=== PATIENT | male | born 1990 | race Caucasian/White ===

== ENCOUNTER 2017-06-12 17:23 | Emergency (ER) | payer OTHER, MEDICAID ==
[2017-06-12] MEDS ORDERED: Ketorolac 60 MG/2 ML SDV ONE (18:21)
--- NOTE | 2017-06-12 18:58 | EDM.PDOC ---
ED HPI GENERAL MEDICAL PROBLEM - General Chief Complaint: Upper Extremity Injury/Pain Stated Complaint: FALL; INJURY TO HAND & ARM Time Seen by Provider: 06/12/17 17:30 Source of Information: Reports: Patient History Limitations: Reports: No Limitations - History of Present Illness INITIAL COMMENTS - FREE TEXT/NARRATIVE: According to patient he was fixing a lamp on the ceiling of the room and accidentally slipped on the ladder, fell from about 6 feet height and landed on the floor with out stretched right hand and felt a sharp pain in his right elbow , since then he cannot move his elbow and is very painful. No brusing or open wound. No other injuries. Onset: Today Onset Date: 06/12/17 Onset Time: 17:00 Location: Reports: Upper Extremity, Right Quality: Reports: Ache Severity: Moderate Improves with: Reports: None Worsens with: Reports: None Associated Symptoms: Denies: Confusion, Fever/Chills, Loss of Appetite, Nausea/ Vomiting, Rash, Shortness of Breath, Syncope left arm Pain Score (Numeric/FACES): 10 - Related Data Allergies Allergy/AdvReac Type Severity Reaction Status Date / Time No Known Allergies Allergy Verified 07/13/16 17:28 Home Meds: Home Meds FLUoxetine [PROzac] 80 mg PO DAILY 06/12/17 [History] LORazepam [Ativan] 0.5 mg PO ASDIRECTED PRN 06/12/17 [History] QUEtiapine [SEROquel] 100 mg PO DAILY 06/12/17 [History] Review of Systems - Review of Systems Review Of Systems: See Below Constitutional: Denies: Chills, Fever Eyes: Denies: Inflammation Ears: Denies: Dizziness, Tinnitus, Clear Discharge, Purulent Discharge Nose: Denies: Clots, Congestion Mouth/Throat: Denies: Bleeding Respiratory: Denies: Cough, Sputum Cardiovascular: Denies: Chest Pain, Syncope GI/Abdominal: Denies: Nausea, Vomiting Musculoskeletal: Reports: Joint Pain, Joint Swelling Neurological: Denies: No Symptoms ED EXAM, GENERAL - Physical Exam Exam: See Below Exam Limited By: No Limitations General Appearance: Alert, WD/WN, Mild Distress Eye Exam: Bilateral Eye: EOMI, PERRL Ears: Normal External Exam, Normal Canal, Hearing Grossly Normal, Normal TMs Ear Exam: Bilateral Ear: Auricle Normal, Canal Normal, TM normal Nose: Normal Inspection, Normal Mucosa, No Blood Throat/Mouth: Normal Inspection, Normal Lips, Normal Teeth, Normal Gums, Normal Oropharynx, Normal Voice, No Airway Compromise Head: Atraumatic, Normocephalic Neck: Normal Inspection, Supple, Non-Tender, Full Range of Motion Respiratory/Chest: No Respiratory Distress, Lungs Clear, Normal Breath Sounds, No Accessory Muscle Use, Chest Non-Tender Cardiovascular: Normal Peripheral Pulses, Regular Rate, Rhythm, No Edema, No Gallop, No JVD, No Murmur, No Rub Extremities: Other (right elnbow: ther is mild swelling around the elbow joint. no brusing seen. Upper extremity in mid flexed position Very minimal flexion and extension, absent pronation and supination.Noraml exam of the right wrist and normal neurovascular exam of the rigth upper extremity.) Course - Vital Signs Text/Narrative:: Pt's clinical exam and his elbow X-ray are consistent with radial head fracture , minimally displaced. I have placed patient in long arm splint. Post splint neurovawscular exam normal. I did call Dr. Smith the Orthopedist dehydration plant operator at [facility]. His agrees with long arm splint. He wants patient to followup with Dr. Ospina the upper extremity specialist at [facility]. Information and phone number given to patient, advised call the orthopedic office on Thursday and set up appointment. Further care per Dr. Ospina. Last Recorded V/S: Last Vital Signs Temp 98.2 F 06/12/17 17:52 Pulse 78 06/12/17 17:52 Resp 20 06/12/17 17:52 BP 154/74 H 06/12/17 17:52 Pulse Ox 98 06/12/17 17:52 - Orders/Labs/Meds Orders: Active Orders 24 hr Category Date Time Status Elbow 2V Rt [CR] Stat Exams 06/12/17 18:09 Taken Forearm 2V Rt [CR] Stat Exams 06/12/17 18:02 Taken Meds: Medications Discontinued Medications Generic Name Dose Route Start Last Admin Trade Name Freq PRN Reason Stop Dose Admin Ketorolac Tromethamine Confirm 06/12/17 18:21 06/12/17 18:43 Toradol Administered 06/12/17 18:22 60 mg Dose Administration 60 mg .ROUTE .STK-MED ONE Departure - Departure Time of Disposition: 19:00 Disposition: Home, Self-Care 01 Condition: Good Clinical Impression: Right radial head fracture - Discharge Information Instructions: Ibuprofen tablets and capsules, Radial Head Fracture, Easy-to- Read Referrals: PCP,None [Primary Care Provider] - Forms: ED Department Discharge Additional Instructions: USe motrin (ibuprfen) as needed for the pain and swelling. Call [place] on Thursday morning at 0800 ask for the ortho clinic...Dr. Ospina [phone]. - Problem List & Annotations (1) Right radial head fracture SNOMED Code(s): 635914261 Code(s): S52.121A - DISP FX OF HEAD OF RIGHT RADIUS, INIT FOR CLOS FX Status: Acute - Problem List Review Problem List Initiated/Reviewed/Updated: Yes - My Orders Last 24 Hours: My Active Orders 06/12/17 18:02 Forearm 2V Rt [CR] Stat 06/12/17 18:09 Elbow 2V Rt [CR] Stat - Assessment/Plan Last 24 Hours: My Active Orders 06/12/17 18:02 Forearm 2V Rt [CR] Stat 06/12/17 18:09 Elbow 2V Rt [CR] Stat Assessment:: Closed right radial head fracture Plan: Pt's clinical exam and his elbow X-ray are consistent with radial head fracture , minimally displaced. I have placed patient in long arm splint. Post splint neurovascular exam normal. He did receive toradol 60mg Im for pain. Advised motrin 600mg 3 times daily for pain. Elevation of extremity. Right arm placed in arm sling. I did call Dr. Smith the Orthopedist dehydration plant operator at [facility]. His agrees with long arm splint. He wants patient to followup with Dr. Ospina the upper extremity specialist at [facility]. Information and phone number given to patient, advised call the orthopedic office on Thursday and set up appointment. Further care per Dr. Ospina.Pt agrees with the plan.
--- NOTE | 2017-06-15 00:39 | CR ---
DATE OF SERVICE: 06/12/2017 CLINICAL DATA: Wheelchair. RIGHT FOREARM: There is a mildly displaced fracture through the radial head. There are positive anterior and posterior fat pad signs at the elbow consistent with a joint effusion or hemarthrosis. There is also a lucency through the distal radius suspicious for a fracture. No other significant findings. [id number] [facility]
--- NOTE | 2017-06-15 00:41 | CR ---
DATE OF SERVICE: 06/12/2017 CLINICAL DATA: Fall. RIGHT ELBOW: There is a comminuted mildly displaced intra-articular fracture through the head of the radius with a moderate size joint effusion/hemarthrosis. No other acute abnormalities. [id number] MTDD
== END 2017-06-12 18:45 | disposition home or self-care (01) ==
LOC: LB.ED 17:23
DX: S52.121A Displaced fracture of head of right radius, initial encounter for closed fracture (principal); W11.XXXA Fall on and from ladder, initial encounter
CPT/HCPCS: 29105; 73070; 73090; 99283; J1885

== ENCOUNTER 2017-09-26 11:05 | Emergency (ER) | payer MEDICAID ==
[2017-09-26] MEDS ORDERED: Levofloxacin 500 MG Tab ONE ×2 (11:25→13:13)
[2017-09-26] MEDS ORDERED: cefTRIAXone 1 GM Vial ONE (13:12)
[2017-09-26] MEDS ORDERED: Ketorolac 30 MG/ML SDV ONE (13:13)
== END 2017-09-26 13:38 | disposition home or self-care (01) ==
LOC: LB.ED 11:05
DX: N45.1 Epididymitis (principal)
CPT/HCPCS: 36415; 81001; 85025; 86140; 87086; 87491; 87591; 99283; A9270-GY; J0696; J1885

== ENCOUNTER 2017-10-16 01:05 | Emergency (ER) | payer MEDICAID ==
[2017-10-16] MEDS: FLUoxetine 20 MG Cap ONE ×2 (02:36)
[2017-10-16] MEDS: FLUoxetine 20 MG Cap PO SCH (02:37)
[2017-10-16 03:11] VITALS: BP 143/94
--- NOTE | 2017-10-16 03:28 | ER ---
DATE OF SERVICE: 10/16/2017 HISTORY OF PRESENT ILLNESS: A 27-year-old male who comes in with law enforcement for suicidal ideation. The patient is currently living with his mother. He tells me that he is not interested in committing suicide, but his mother called law enforcement because the patient was making threats about suicide and actually held a gun to his head a couple of nights ago. The patient states that he usually will just take a gun and go out walking and will target shoot basically. He is adamant about not being serious about suicide. The patient tells me that he has had a lot going on lately. He has an arm injury from last winter that required surgery involving the right arm and this is still bothering him. He has not been able to work since then. He also admits to having history of OCD and depression. The patient is out of his medications. He has been on Prozac 80 mg a day and Seroquel 100 mg a day. He states that he has tried to get his medications and there was some problem with his current insurance, and he was given 10 tablets at one time and now he has been out for a few days and he knows he is going into withdrawal mode. The patient states that he also smokes weed to help him relax and with pain control. He denies any alcohol use. OBJECTIVE: GENERAL APPEARANCE: The patient is awake. He is somewhat belligerent initially. He is covered with mud and dirt. He states this happened when the legal arbitrator arrested him. He tells me that he was also caged in the process. VITAL SIGNS: Reviewed as listed. HEENT: Eyes, pupils are equal and reactive to light. Ears, TMs are normal. The patient is refusing an oral exam. LUNGS: Clear. CARDIAC: Heart sounds distinct without murmurs. SKIN: Warm and dry. LABORATORY DATA: Labs include a CBC which is normal. CMP is also unremarkable. Urine tox screen is positive for benzodiazepines and marijuana. ETOH is negative. At this point, we also consulted with [facility] who did an evaluation on the patient. I talked with Gill after the evaluation was done and he does not feel the patient is a risk for suicide tonight, and he deems the patient safe to return home especially with family members at home which would be a support system for the patient. DIAGNOSIS: Suicidal ideation with no intent of committing suicide. TREATMENT PLAN: The patient will be discharged to the care of law enforcement annalise. We did give the patient 1 dose of Prozac 80 mg and Seroquel 100 mg before leaving our facility. The patient calmed down nicely over his stay here and is very pleasant at the end of our visit. ELROY/JOHNNY /[id number] MTDD
== END 2017-10-16 03:00 ==
LOC: EEVIPCON 01:05 → LB.ED 01:05
DX: R45.851 Suicidal ideations (principal)
CPT/HCPCS: 36415; 80053; 80307; 85025; 99284; A9270; G0480

== ENCOUNTER 2018-12-26 13:16 | Emergency (ER) | payer MEDICAID | END 2018-12-26 13:29 | disposition home or self-care (01) | LOC: LB.ED 13:16 | DX: Z53.21 Procedure and treatment not carried out due to patient leaving prior to being seen by health care provider (principal) ==

== ENCOUNTER 2018-12-26 15:53 | Emergency (ER) | payer MEDICAID ==
--- NOTE | 2018-12-26 16:04 | EDM.PDOC ---
ED HPI GENERAL MEDICAL PROBLEM - General Chief Complaint: General Stated Complaint: injured Right finger Time Seen by Provider: 12/26/18 16:00 Source of Information: Reports: Patient History Limitations: Reports: No Limitations - History of Present Illness INITIAL COMMENTS - FREE TEXT/NARRATIVE: According to patient, he is left handed, he was holding on to some wood and slamming the nail into it with a sledge hammer in his left hand. He accidentally hit his right hand over the base of the index finger. [place] severe pain. Since then he has not been able to bend his index finger and also has developed swelling over the base of the index finger. No open wound. No other injuries. Onset: Today Onset Date: 12/26/18 Onset Time: 13:00 Location: Reports: Upper Extremity, Right Quality: Reports: Ache Severity: Moderate Improves with: Reports: None Worsens with: Reports: None Associated Symptoms: Denies: Confusion, Chest Pain, Cough, Diaphoresis, Fever/ Chills, Headaches, Nausea/Vomiting, Rash, Seizure, Shortness of Breath, Syncope , Weakness - Related Data Allergies Allergy/AdvReac Type Severity Reaction Status Date / Time No Known Allergies Allergy Verified 12/26/18 13:25 Home Meds: Home Meds FLUoxetine [PROzac] 80 mg PO QPM 06/12/17 [History] QUEtiapine [SEROquel] 100 mg PO QPM 06/12/17 [History] Past Medical History Respiratory History: Reports: Other (See Below) Other Respiratory History: hx tuberculosis several years ago and was treated. X rays done last spring and were negative at that time Genitourinary History: Reports: Other (See Below) Other Genitourinary History: 2017 hydrocele in testicle not sure what side. Lump in left testicle now. Hx recent STD Musculoskeletal History: Reports: Neck Pain, Chronic, Other (See Below) Other Musculoskeletal History: buldged disk in neck C1 and C2 but states more are bad now Psychiatric History: Reports: Anxiety, Depression, OCD, Panic Attack, PTSD - Infectious Disease History Infectious Disease History: Reports: TB - Past Surgical History Male Surgical History: Reports: None Musculoskeletal Surgical History: Reports: Other (See Below) Other Musculoskeletal Surgeries/Procedures:: fractured rt arm June 12 2017 States has hurt last couple of weeks or longer. No heavy lifting Social & Family History - Family History Family Medical History: Noncontributory - Caffeine Use Caffeine Use: Reports: Coffee, Soda ED ROS GENERAL - Review of Systems Review Of Systems: See Below Constitutional: Denies: Fever, Chills HEENT: Denies: Ear Pain, Rhinitis, Throat Pain Respiratory: Denies: Shortness of Breath, Pleuritic Chest Pain, Cough, Sputum Cardiovascular: Denies: Chest Pain, Lightheadedness GI/Abdominal: Denies: Abdominal Pain, Nausea, Vomiting Musculoskeletal: Reports: Hand Pain. Denies: Joint Pain, Joint Swelling, Muscle Pain, Muscle Stiffness Skin: Denies: Bruising, Pruritis, Rash, Wound ED EXAM, GENERAL - Physical Exam Exam: See Below Exam Limited By: No Limitations General Appearance: Alert, WD/WN, No Apparent Distress Eye Exam: Bilateral Eye: EOMI, PERRL Ears: Normal External Exam, Normal Canal, Hearing Grossly Normal, Normal TMs Ear Exam: Bilateral Ear: Auricle Normal, Canal Normal, TM normal Nose: Normal Inspection, Normal Mucosa, No Blood Throat/Mouth: Normal Inspection, Normal Lips, Normal Teeth, Normal Gums, Normal Oropharynx, Normal Voice, No Airway Compromise Head: Atraumatic, Normocephalic Neck: Normal Inspection, Supple, Non-Tender, Full Range of Motion Respiratory/Chest: No Respiratory Distress, Lungs Clear, Normal Breath Sounds, No Accessory Muscle Use, Chest Non-Tender Cardiovascular: Normal Peripheral Pulses, Regular Rate, Rhythm, No Edema, No Gallop, No JVD, No Murmur, No Rub Back Exam: Normal Inspection, Full Range of Motion, NT Extremities: Other (Right hand: ther eiis swelling over the 2nd MCP joint. ONn ROM, he has minimal painful flexion of the finger at MCP joint. Tender over MCP joint, no crepitus felt.) Neurological: Alert, Oriented, CN II-XII Intact, Normal Cognition, Normal Gait, Normal Reflexes, No Motor/Sensory Deficits Course - Vital Signs Text/Narrative:: Pt his his right hand 2nd MCP joint with sledge hammer accidentally today . He does have swelling of the joint. Painful flexion at the joint. X-ray of the right hand does not show any fracture or dislocation. Pt reassured. Advised intermittent cold compresses. Start ROM activities of the finger and hand. Motrin 800mg 3 times daily. Pain should gradually improve. Last Recorded V/S: Last Vital Signs Temp 99.2 F 12/26/18 16:00 Pulse 79 12/26/18 16:00 Resp 18 12/26/18 16:00 BP 129/82 12/26/18 16:00 Pulse Ox 99 12/26/18 16:00 - Orders/Labs/Meds Orders: Active Orders 24 hr Category Date Time Status Hand Comp Min 3V Rt [CR] Stat Exams 12/26/18 15:59 Ordered Departure - Departure Time of Disposition: 16:20 Disposition: Home, Self-Care 01 Condition: Fair Clinical Impression: Soft tissue injury of hand - Discharge Information *PRESCRIPTION DRUG MONITORING PROGRAM REVIEWED*: Not Applicable *COPY OF PRESCRIPTION DRUG MONITORING REPORT IN PATIENT DANIEL: Not Applicable Forms: ED Department Discharge Additional Instructions: Pt his his right hand 2nd MCP joint with sledge hammer accidentally today . He does have swelling of the joint. Painful flexion at the joint. X-ray of the right hand does not show any fracture or dislocation. Pt reassured. Advised intermittent cold compresses. Start ROM activities of the finger and hand. Motrin 800mg 3 times daily. Pain should gradually improve. - Problem List & Annotations (1) Soft tissue injury of hand SNOMED Code(s): 669176015, 142790970 Code(s): S69.90XA - UNSP INJURY OF UNSP WRIST, HAND AND FINGER(S), INIT ENCNTR Status: Acute Current Visit: Yes - Problem List Review Problem List Initiated/Reviewed/Updated: Yes - My Orders Last 24 Hours: My Active Orders 12/26/18 15:59 Hand Comp Min 3V Rt [CR] Stat - Assessment/Plan Last 24 Hours: My Active Orders 12/26/18 15:59 Hand Comp Min 3V Rt [CR] Stat Assessment:: Soft tissue injury of right hand Plan: Pt his his right hand 2nd MCP joint with sledge hammer accidentally today . He does have swelling of the joint. Painful flexion at the joint. X-ray of the right hand does not show any fracture or dislocation. Pt reassured. Advised intermittent cold compresses. Start ROM activities of the finger and hand. Motrin 800mg 3 times daily. Pain should gradually improve.
--- NOTE | 2018-12-27 14:17 | CONS ---
DATE OF CONSULTATION: 12/26/2018 IMPRESSION: No acute fracture or dislocation. No lytic or blastic bone lesions. MILAD/MODKhadra /[id number]
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
== END 2018-12-26 16:18 | disposition home or self-care (01) ==
LOC: LB.ED 15:53
DX: S69.91XA Unspecified injury of right wrist, hand and finger(s), initial encounter (principal); F41.9 Anxiety disorder, unspecified; F32.9 Major depressive disorder, single episode, unspecified; Z79.899 Other long term (current) drug therapy; W22.8XXA Striking against or struck by other objects, initial encounter; Z53.21 Procedure and treatment not carried out due to patient leaving prior to being seen by health care provider
CPT/HCPCS: 73130-RT; 99283-25

== ENCOUNTER 2018-12-27 11:10 | Emergency (ER) | payer MEDICAID ==
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
== END 2018-12-27 16:33 | disposition home or self-care (01) ==
LOC: LB.ED 11:10
DX: F41.9 Anxiety disorder, unspecified (principal); F43.10 Post-traumatic stress disorder, unspecified; F42.9 Obsessive-compulsive disorder, unspecified; R44.3 Hallucinations, unspecified
CPT/HCPCS: 36415; 80053; 80307; 81003; 84443; 85025; 99284; G0480

== ENCOUNTER 2021-10-20 21:40 | Emergency (ER) | payer MEDICAID ==
[2021-10-20] MEDS ORDERED: Lidocaine 1% 5 ML VIAL INJECT ONE (21:58)
[2021-10-20] MEDS ORDERED: Diphtheria,Pertussis(Acell),Tetanus Vaccine 0.5 ML SDV IM ONE (22:54)
== END 2021-10-20 22:37 | disposition home or self-care (01) ==
LOC: LB.ED 21:40
DX: S61.211A Laceration without foreign body of left index finger without damage to nail, initial encounter (principal); Z79.899 Other long term (current) drug therapy; Z23 Encounter for immunization; W26.8XXA Contact with other sharp object(s), not elsewhere classified, initial encounter
CPT/HCPCS: 12001; 90471; 90715; 99282-25

== ENCOUNTER 2023-05-26 14:22 | Emergency (ER) | payer MEDICAID, MEDICARE ==
[2023-05-26] MEDS ORDERED: Ibuprofen 600 MG Tab PO ONE (15:33)
[2023-05-26] MEDS ORDERED: Docusate Sodium 100 MG Cap PO ONE (15:34)
[2023-05-26] MEDS ORDERED: Ibuprofen 600 MG Tab ONE (15:40)
== END 2023-05-26 15:55 | disposition home or self-care (01) ==
LOC: LB.ED 14:22
DX: G89.29 Other chronic pain (principal); M54.2 Cervicalgia; K62.89 Other specified diseases of anus and rectum; F17.210 Nicotine dependence, cigarettes, uncomplicated
CPT/HCPCS: 99283; A9270-GY

== ENCOUNTER 2024-10-21 21:55 | Emergency (ER) | payer MEDICAID, MEDICARE ==
[2024-10-21] MEDS: Docusate Sodium 100 MG Cap PO ONE (22:44)
[2024-10-21] MEDS: Polyethylene Glycol 3350 Powder 17 GM Packet PO ONE (23:08)
== END 2024-10-21 23:12 | disposition home or self-care (01) ==
LOC: LB.ED 21:55
DX: K60.2 Anal fissure, unspecified (principal); K64.9 Unspecified hemorrhoids; E78.00 Pure hypercholesterolemia, unspecified; Z79.899 Other long term (current) drug therapy; Z88.0 Allergy status to penicillin; F17.200 Nicotine dependence, unspecified, uncomplicated
CPT/HCPCS: 99283; A9270